=== PATIENT | female | born 1975 | race Asian ===

== ENCOUNTER → 2017-01-12 | Outpatient (CLI) | payer BC ==
[~2017-01-12] MED LIST: IBUP600T44 PO; OXYC-57 PO; PRENTAB26 PO
--- NOTE | 2017-01-12 13:26 | MAMMOGRAPHY REPORT ---
BILATERAL DIGITAL DIAGNOSTIC MAMMOGRAM TOMOSYNTHESIS WITH CAD AND TARGETED BILATERAL ULTRASOUND: 01/12 CLINICAL HISTORY: The patient reports left lateral breast pain before her menstrual period which has now resolved. She denies any palpable lumps or other complaints. TECHNIQUE: Breast tomosynthesis in addition to standard 2D mammography was performed. Current study was also evaluated with a Computer Aided Detection (CAD) system. Bilateral CC and MLO 2-D and nubia synthesis images were obtained. COMPARISON: No prior exams were available for comparison. BREAST COMPOSITION: The tissue of both breasts is extremely dense, which lowers the sensitivity of mammography. FINDINGS: There is a 13 mm asymmetry seen within the right lateral breast middle depth on the cc vi ew, which has the appearance of overlapping fibroglandular tissue on the tomosynthesis images, altho ugh ultrasound is recommended to exclude a mass. The remainder of both breasts are negative, withou t suspicious masses, calcifications, or areas of architectural distortion noted. Scattered bilatera l benign-appearing calcifications are noted. Targeted ultrasound was performed of the area of prior pain pointed out by the patient involving the left upper outer and lower outer quadrants far laterally. Sonographically normal tissue is seen in this region, without evidence of a mass or other suspicious sonographic abnormality. Targeted ultrasound was performed of the right lateral breast in the region of the mammographic asym metry, which shows sonographically normal tissue without evidence of a mass or other suspicious sono graphic abnormality. Given the lack of sonographic abnormality, the asymmetry is benign and compati ble with normal fibroglandular tissue. IMPRESSION: ACR BI-RADS CATEGORY 2: BENIGN, TARGETED ULTRASOUND ACR BI-RADS CATEGORY 2: BENIGN No suspicious mammographic or sonographic abnormality to explain left lateral breast pain, which has now resolved. There is no mammographic or targeted sonographic evidence of malignancy. Recommend clinical follow-up for left breast pain, and recommend routine bilateral screening mammograms in one year. The patient has been verbally notified of the results. Approximately 10% of breast cancers are not detected with mammography. A negative mammographic repor t should not delay biopsy if a clinically suggestive mass is present. Ashli Oden M.D. ah/:01/12/2017 09:48:25 Sales Lead Generator: Lin ANGELES(Tyler)(Rhea), [facility] letter sent: Normal 1/2 BI-RADS Code: ACR BI-RADS Category 2: Benign Ultrasound BI-RADS: ACR BI-RADS Category 2: Benign
== END | disposition home or self-care (01) ==
LOC: C.MAMM 09:16
PROVIDERS: ATTEND Obstetrics & Gynecology
DX: N64.4 Mastodynia (principal)

== ENCOUNTER → 2018-01-19 | Outpatient (CLI) | payer OTHER | END | disposition home or self-care (01) | LOC: C.PAPS 11:13 | PROVIDERS: ATTEND Physician Assistant | DX: Z01.419 Encounter for gynecological examination (general) (routine) without abnormal findings (principal) ==

== ENCOUNTER → 2018-01-19 | Outpatient (CLI) | payer OTHER | END | disposition home or self-care (01) | LOC: C.LAB1850 09:30 | PROVIDERS: ATTEND Physician Assistant | DX: N92.6 Irregular menstruation, unspecified (principal) ==

== ENCOUNTER → 2018-01-24 | Outpatient (CLI) | payer OTHER ==
--- NOTE | 2018-01-24 15:37 | MAMMOGRAPHY REPORT ---
BILATERAL DIGITAL DIAGNOSTIC MAMMOGRAM TOMOSYNTHESIS WITH CAD AND TARGETED LEFT ULTRASOUND: 01/24/2018 CLINICAL HISTORY: The patient reports that her provider felt a lump in her left axilla during a routi ne clinical exam. The patient also had some pain in the same region during the clinical exam. TECHNIQUE: Breast tomosynthesis in addition to standard 2D mammography was performed. Current study was also evaluated with a Computer Aided Detection (CAD) system. Bilateral CC and MLO and left XCCL 2D and tomosynthesis images were obtained. COMPARISON: Comparison is made to exams dated: 01/12/2017 ultrasound and 01/12/2017 mammogram - [facility]. BREAST COMPOSITION: The tissue of both breasts is extremely dense, which lowers the sensitivity of m ammography. FINDINGS: A triangle marker white the site of the palpable lump in the left upper outer quadrant far superiorly. No suspicious mass or other suspicious mammographic abnormality is noted in this region. The remainder of both breasts are stable mammographically compared to the prior exam, without suspi cious masses, calcifications, or areas of architectural distortion noted. Scattered bilateral benign -appearing calcifications are not significantly changed. Targeted ultrasound was performed of the area of the palpable lump and associated pain pointed out by the patient in the left axillary region. Sonographically normal tissue is seen in this region, with out evidence of a mass or other suspicious sonographic abnormality. Incidentally noted are morpholog ically normal left axillary lymph nodes, without evidence of axillary adenopathy. IMPRESSION: ACR BI-RADS CATEGORY 2: BENIGN, TARGETED ULTRASOUND ACR BI-RADS CATEGORY 2: BENIGN No suspicious mammographic or sonographic abnormality at the site of the palpable lump and associated pain in the left axillary region. There is no mammographic or targeted sonographic evidence of dylon gnancy. Recommend clinical follow-up, and recommend routine bilateral screening mammograms in one ye ar. The patient has been verbally notified of the results. Approximately 10% of breast cancers are not detected with mammography. A negative mammographic report should not delay biopsy if a clinically suggestive mass is present. Ashli Oden M.D. /:01/24/2018 11:52:19 Public Health Director: Lin Alarcon, [facility] letter sent: Normal 1/2 BI-RADS Code: ACR BI-RADS Category 2: Benign Ultrasound BI-RADS: ACR BI-RADS Category 2: Benign
== END | disposition home or self-care (01) ==
LOC: C.MAMM 11:26
PROVIDERS: ATTEND Physician Assistant
DX: N63.20 Unspecified lump in the left breast, unspecified quadrant (principal)